=== PATIENT | female | born 1985 | race Caucasian/White ===

== ENCOUNTER 2017-02-25 21:00 | Inpatient (IN) | payer BC ==
[~2017-02-25] VITALS: Ht 172.7 cm; Wt 70.0 kg
[2017-02-25] MEDS ORDERED: D5%-LACTATED RINGERS 1,000 ML IV SCH (21:50)
[2017-02-25] MEDS ORDERED: OXYTOCIN 30U/ 0.9% NaCL 500ML 500 ML IV ONE (21:50)
[2017-02-25] MEDS: LACTATED RINGERS 1,000 ML IV SCH ×2 (21:53→22:14)
[2017-02-25] MEDS ORDERED: ONDANSETRON 2MG/ML, 2ML ONE (21:56)
[2017-02-25] MEDS ORDERED: FENTANYL PF 100 MCG/2ML IV PRN (22:00)
[2017-02-25] MEDS ORDERED: ONDANSETRON 2MG/ML, 2ML IVPush PRN (22:00)
[2017-02-25] MEDS ORDERED: CALCIUM CARBONATE 500 MG TAB.CHEW PO PRN (22:00)
[2017-02-25] MEDS ORDERED: TERBUTALINE 1 MG/ML, 1ML IVPush PRN (22:00)
[2017-02-25] MEDS ORDERED: FENTANYL PF 100 MCG/2ML IVPush PRN (22:00)
[2017-02-25 22:09] LABS: HEMOGLOBIN 12.7 g/dL (11.7-16.4); WHITE BLOOD COUNT 12.8 x10^3/uL (3.4-10)
[2017-02-25] MEDS ORDERED: FENTANYL/BUPIV./NS/PF 250 ML EPIDCONT ONE ×2 (22:21)
[2017-02-25] MEDS ORDERED: LIDOCAINE/PF 1.5%-EPI 1:200K, 30ML ONE (22:21)
[2017-02-25] MEDS ORDERED: FENTANYL/BUPIV./NS/PF 250 ML EPIDCONT SCH (22:54)
[2017-02-25] MEDS ORDERED: LACTATED RINGERS 1,000 ML IV SCH (22:54)
[2017-02-25] MEDS ORDERED: NALOXONE 0.4 MG/ML, 1ML IVPush PRN (23:00)
[2017-02-25] MEDS ORDERED: EPHEDRINE 50 MG/ML, 1ML IVPush PRN (23:00)
[2017-02-25] MEDS ORDERED: LACTATED RINGERS 1,000 ML IVBOLUS PRN (23:00)
[2017-02-26] MEDS ORDERED: LIDOCAINE 1%, 20ML ONE (00:38)
[2017-02-26] MEDS: OXYTOCIN 30U/ 0.9% NaCL 500ML 500 ML IV SCH ×4 (00:54→05:12)
[2017-02-26] MEDS ORDERED: OXYTOCIN 30U/ 0.9% NaCL 500ML 500 ML IV SCH (00:54)
[2017-02-26] MEDS ORDERED: HYDROcodone/APAP 5/325 TABLET PO PRN (01:00)
[2017-02-26] MEDS ORDERED: ACETAMINOPHEN 325 MG TABLET PO PRN ×2 (01:00)
[2017-02-26] MEDS ORDERED: CALCIUM CARBONATE 500 MG TAB.CHEW PO PRN (01:00)
[2017-02-26] MEDS ORDERED: CARBOPROST TROMETHAMINE 250 MCG/ML, 1ML IM PRN (01:00)
[2017-02-26] MEDS ORDERED: MISOPROSTOL 200 MCG TABLET PR PRN (01:00)
[2017-02-26] MEDS ORDERED: BISACODYL 10 MG SUPP PR PRN (01:00)
[2017-02-26] MEDS ORDERED: METHYLERGONOVINE 0.2 MG/ML IM PRN (01:00)
[2017-02-26] MEDS ORDERED: ONDANSETRON 2MG/ML, 2ML IV PRN (01:00)
[2017-02-26] MEDS ORDERED: IBUPROFEN 600 MG TABLET ONE (01:09)
[2017-02-26] MEDS ORDERED: OXYcodone/APAP 5/325MG TABLET ONE (01:10)
[2017-02-26] MEDS ORDERED: OXYTOCIN 30U/ 0.9% NaCL 500ML 500 ML ONE (01:10)
[2017-02-26] MEDS: IBUPROFEN 600 MG TABLET PO PRN ×3 (01:42→19:09)
[2017-02-26] MEDS: OXYcodone/APAP 5/325MG TABLET PO PRN (01:42)
[2017-02-26 02:30] VITALS: BP 113/74
[2017-02-26 06:15] VITALS: BP 125/77
[2017-02-26 08:59] LABS: HEMATOCRIT 35.3 % (34.6-47.8); HEMOGLOBIN 11.8 g/dL (11.7-16.4); WHITE BLOOD COUNT 18.2 x10^3/uL (3.4-10)
[2017-02-26 09:29] LABS: DIFF TOTAL CELLS COUNTED 100 CELL DIFF
[2017-02-26 09:32] LABS: VERIFY COUNTS? YES
[2017-02-26] MEDS: PRENATAL VIT/IRON/FA 1 EACH TABLET PO SCH (12:12)
[2017-02-26] MEDS: DOCUSATE 100 MG CAPSULE PO PRN ×2 (12:12→19:09)
[2017-02-26] MEDS: HYDROcodone/APAP 5/325 TABLET PO PRN (19:09)
[2017-02-26 20:20] VITALS: BP 119/75
[2017-02-27] VITALS: BP_SYST 103; BP_SYST 118; BP_DIAS 50; BP_DIAS 80
[2017-02-27] MEDS: HYDROcodone/APAP 5/325 TABLET PO PRN (07:35)
[2017-02-27] MEDS: IBUPROFEN 600 MG TABLET PO PRN (07:36)
[2017-02-27 09:15] VITALS: BP 110/71
[2017-02-27] MEDS ORDERED: DOCU-131 PO (10:03)
[2017-02-27] MEDS ORDERED: OXYC-302 PO (10:06)
[2017-02-27] MEDS ORDERED: IBUP-1222 PO (10:06)
[2017-02-27] MEDS: DOCUSATE 100 MG CAPSULE PO PRN (12:37)
[2017-02-27] MEDS: PRENATAL VIT/IRON/FA 1 EACH TABLET PO SCH (12:37)
[2017-02-27] MEDS: OXYcodone/APAP 5/325MG TABLET PO PRN (12:37)
== END 2017-02-27 13:35 | disposition home or self-care (01) | DRG 775 ==
LOC: LDOP 21:00 → LDIP 21:41 → 2NW 02-26 02:15
PROVIDERS: ADMIT Obstetrics & Gynecology; ATTEND Obstetrics & Gynecology
PROC: 10E0XZZ Delivery of Products of Conception, External Approach (ICD-10-PCS; principal; 2017-02-26)
PROC: 0KQM0ZZ Repair Perineum Muscle, Open Approach (ICD-10-PCS; 2017-02-26)
PROC: 10907ZC Drainage of Amniotic Fluid, Therapeutic from Products of Conception, Via Natural or Artificial Opening (ICD-10-PCS; 2017-02-26)
DX: O70.1 Second degree perineal laceration during delivery (principal); Z37.0 Single live birth; Z3A.39 39 weeks gestation of pregnancy
CPT/HCPCS: 36415; 82803; 85025; 86850; 86900; J2405; J3010; J3490; J2590; J7120; J7121